=== PATIENT | male | born 1975 | race Caucasian/White ===

== ENCOUNTER 2017-04-25 22:00 | Inpatient (IN) | payer SELFPAY ==
--- NOTE | ~2017-04-25 | HP ---
Unit #: [id number] #: [id number] Patient: SAMY SHEN [id number] [place] [address] [id number] I MR#: [id number] NAME: SAMY SHEN ROOM: P212 Age: 41 Sex: M Admission Date: 04/26/2017 : 1975 Attending Physician: Sumeet Meade M.D. Admitting Physician: Sumeet Meade M.D. Primary Care Physician: Primary Care Physician No HISTORY AND PHYSICAL HISTORY OF PRESENT ILLNESS Samy is a 41 year old admitted to [address] [place] [address] because of his drug use. He shoots heroin and abuses benzodiazepines. PAST MEDICAL HISTORY Long history of illicit substance abuse to include IV heroin. PAST SURGICAL HISTORY Nothing reported. ALLERGIES No known drug allergies. SOCIAL HISTORY He smokes 1 pack per day. Denies alcohol. Admits to a long history of illicit substance abuse to include abusing benzodiazepines and IV heroin. FAMILY HISTORY Medically noncontributory. REVIEW OF SYSTEMS CONSTITUTIONAL: No fever or chills. HEENT: Denies any sore throat, ear pain or runny nose. CARDIOVASCULAR: Denies chest pain, irregular heart rhythm or palpitations. CHEST: Denies shortness of breath or cough. No hemoptysis. GASTROINTESTINAL: Denies nausea, vomiting, diarrhea or chronic constipation. ENDOCRINE: Denies history of increased thirst or urination. No recent significant weight loss or gain. GENITOURINARY: Denies dysuria, frequency, or hematuria. SKIN: Denies any rashes. HEMATOLOGIC: Denies history of increased bleeding or bruising. MUSCULOSKELETAL: Denies any hot, swollen joints. No generalized muscle pain. NEUROLOGIC: Denies problems with vision or speech. No frequent, severe headaches. No numbness, tingling or weakness in any extremities. Denies loss of bladder or bowel control. CURRENT MEDICATIONS Detox protocol. PHYSICAL EXAMINATION GENERAL: Alert, well-nourished, in no apparent distress. Unit #: [id number] #: [id number] Patient: SAMY SHEN VITAL SIGNS: Blood pressure 118/76, heart rate 70, respirations 16, temperature 98.6. WEIGHT: 184. HEIGHT: 5 feet 8 inches. SKIN: Warm and dry without rash or lesion. HEENT: Normocephalic. TMs not viewed. Oral and nasal passages clear. Conjunctivae clear. PERRLA. EOMs intact. NECK: Supple without lymphadenopathy or thyromegaly. HEART: Regular rate and rhythm without murmur. LUNGS: Clear. ABDOMEN: Soft, nontender. : Not done. EXTREMITIES: No evidence of cyanosis, clubbing or edema. Moves all without focal deficit. NEUROLOGICAL: Grossly within normal limits. Cranial Nerves: II: Visual marino are intact. III, IV AND : Extraocular movements are intact. Pupils are equal, round and reactive to light. V: Facial sensation is grossly normal. VII: Facial movements and expression are normal. VIII: Auditory acuity grossly intact. IX, X: Uvula is midline. Phonation is normal. XI: Patient shrugs shoulders and turns head normally. XII: Tongue protrudes in the midline. Sensory and Motor Function: Sensory and motor sensation is grossly normal. Motor: moves all extremities well. Coordination: Gait is normal. Deep Tendon Reflexes: Intact. IMPRESSION Psychiatric admission. RECOMMENDATIONS PSYCHIATRIC: Per psychiatrist. MEDICAL: See no contraindications to participate in facility's activities. MEDICAL PROGNOSIS Good. MEDICAL CONDITION Stable. Dictated by... Isidra Meredith P.A.-C. for Dominic Rollins/jose TD: 04/26/2017 23:22 JOB #: [id number] Unit #: [id number] #: [id number] Patient: SAMY SHEN HISTORY AND PHYSICAL Page 1 of 1 X Isidra Meredith HISTORY AND PHYSICAL
--- NOTE | ~2017-04-25 | DS ---
Unit #: [id number] #: [id number] Patient: ALYCIA SHEN [id number] [place] [address] [id number] MR#: [id number] NAME: ALYCIA SHEN ROOM: [facility] Age: 41 Sex: M Admission Date: 04/26/2017 : 1975 Discharge Date: 04/28/2017 Attending Physician: Sumeet Meade M.D. Primary Care Physician: Primary Care Physician No DISCHARGE SUMMARY REASON FOR ADMISSION The patient is a 41-year-old white male admitted to the [address] [place] [address] with a history of opioid dependence. HOSPITAL COURSE The patient was admitted to the [address] [place] [address] and placed on routine detoxification protocol for opioids. He did complain of some restless leg and was given a couple of doses of Requip which did seem to help with the symptoms. By 04/28, the patient requested discharge with his detox essentially complete, discharge was ordered. DISCHARGE DIAGNOSIS Opioid use disorder. FOLLOWUP CARE Followup to take place through the auspices of community mental health and chemical dependence treatment resources. DISCHARGE MEDICATIONS The patient is discharged on no psychotropic or other medications. PROGNOSIS Considered fair. Dictated by... Sumeet Meade M.D. CB/jose TD: 04/28/2017 15:44 JOB #: [id number] Unit #: [id number] #: [id number] Patient: ALYCIA SHEN DISCHARGE SUMMARY Page 1 of 1 X Sumeet Meade MD X DISCHARGE SUMMARY
--- NOTE | ~2017-04-25 | PA ---
Unit #: [id number] #: [id number] Patient: ALYCIA SHEN [id number] [place] [address] [id number] MR#: [id number] NAME: ALYCIA SHEN ROOM: P212 Age: 41 Sex: M Admission Date: 04/26/2017 : 1975 Date of Assessment: 04/26/2017 Attending Physician: Sumeet Meade M.D. Admitting Physician: Sumeet Meade M.D. Primary Care Physician: Primary Care Physician No PSYCHIATRIC ASSESSMENT IDENTIFYING INFORMATION The patient is a 41-year-old white male, admitted to the [address] [place] [address] for opioid detox. INFORMANT(S) Patient, patient reliability is good. CHIEF COMPLAINT None given. HISTORY OF PRESENT ILLNESS The patient is a 41-year-old white male, last admitted to this facility in 2013 has history of opioid and cannabis abuse and is admitted with recurrent abuse of heroin. The patient's COWS score is (1)____, the patient reports that he has also used pain pills and has been addicted to pain pills and heroin for the past fifteen years. He was last treated at this facility in 2013 but maintained sobriety for only a brief period of time thereafter. The patient is currently facing homelessness but states that he had planned to live with a cousin in [place] following his discharge from the hospital. He is currently denying suicidal or homicidal ideation. PAST PSYCHIATRIC HISTORY As noted previously, the patient has been treated at this facility in the past. He was also treated at [facility]. He was last here in 2013. He has no other past medical history. MEDICATIONS None at this time. ALLERGIES None. FAMILY HISTORY Noncontributory. SOCIAL HISTORY As noted previously the patient is facing homelessness and he is presently unemployed. He has been x2. He completed his GED. MENTAL STATUS EXAM Unit #: [id number] #: [id number] Patient: ALYCIA SHEN At this time reveals the patient to be a well-developed, well-nourished white male, appearing his stated age. He is in no apparent physical distress at the time of the examination. He is awake, alert, and oriented in all spheres. His mood is mildly dysphoric. His affect is constricted. Speech is generally relevant and coherent. There are no gross deficits to memory or cognition noted. Intelligence is judged to be in the average range based on fund of knowledge. The patient is cooperative throughout the interview. He is currently denying suicidal or homicidal ideation or psychotic features. Judgment and insight appear to be intact. ASSETS Motivation for change. LIABILITIES Lack of resources, history of sociopathy. DIAGNOSTIC IMPRESSION [place] I: Opioid use disorder. TREATMENT PLAN The patient remains hospitalized for safety and stabilization and routine detoxification protocol for opiates has been initiated. I will ask the patient's group social worker to see him regarding potential postdischarge treatment options and have added p.r.n. Vistaril and melatonin as well as a NicoDerm patch. ESTIMATED LENGTH OF STAY IN THE HOSPITAL Five days. Dictated by... Sumeet Meade M.D. ELIZABETH/pieter TD: 04/26/2017 13:12 JOB #: [id number] PSYCHIATRIC ASSESSMENT Page 1 of 1 X Sumeet Meade MD X PSYCHIATRIC ASSESSMENT
--- NOTE | ~2017-04-25 | PN ---
Unit #: [id number] #: [id number] Patient: ALYCIA SHEN [id number] [facility] [address] [place] [address] [id number] MR#: [id number] NAME: ALYCIA SHEN ROOM: P212 Age: 41 Sex: M Admission Date: 04/26/2017 : 1975 Attending Physician: Sumeet Meade M.D. Admitting Physician: Sumeet Meade M.D. Primary Care Physician: Primary Care Physician Jacqueline PROCTOR PROGRESS NOTES DATE 04/27/2017 DISCUSSION The patient is continuing to complain of significant symptoms of opiate withdrawal particularly restless legs which do appear present during today's evaluation. He states that he has done well on Requip in the past and we will start this medication at a dose of 0.25 mg b.i.d. Dictated by... Sumeet Meade M.D. ELIZABETH/jose TD: 04/27/2017 16:04 JOB #: [id number] [facility] PROGRESS NOTES Page 1 of 1 X Sumeet Meade MD PROGRESS NOTE
[2017-04-27 09:42] LABS: BASOPHIL% 0.7 % (0-2.5); EOSINOPHIL# 0.2 X10e3 (0-0.7); HEMATOCRIT 43.5 % (38.0-50.0); HEMOGLOBIN 14.5 gm/dL (13.0-16.0); LYMPHOCYTE# 2.9 X10e3 (1.0-3.5); MEAN CELL VOLUME 91.4 FL (83-96); MEAN CORPUSCULAR HEMOGLOBIN 30.3 PG (28-34); MEAN CORPUSCULAR HGB CONC 33.2 g/dL (30-36); MEAN PLATELET VOLUME 8.4 FL (6.5-11.5); MONOCYTE# 0.4 X10e3 (0-1.0); MONOCYTE% 6.1 % (3.0-12.0); NEUTROPHIL# 2.6 X10e3 (1.5-7.1); NEUTROPHIL% 42.2 % (40-75); PLATELET COUNT 238 X10e3 (140-420); RED BLOOD COUNT 4.76 X10e (3.90-5.60); RED CELL DISTRIBUTION WIDTH 13.2 % (11.0-15.5); WHITE BLOOD COUNT 6.2 X10e3 (4.0-10.5)
[2017-04-27 10:05] LABS: DIFF IND NO
[2017-04-27 10:08] LABS: ALBUMIN SERUM 3.9 g/dL (3.5-5.0); BILIRUBIN,TOTAL 0.5 mg/dL (0.2-2.0); BUN/CREATININE RATIO 8.75; CALCIUM SERUM 9.3 mg/dL (8.4-10.2); CREATININE SERUM 0.8 mg/dL (0.6-1.4); GLOM FILT RATE Estimated 109.5 mL/min (>60); POTASSIUM 3.8 mmol/L (3.5-5.1); PROTEIN TOTAL SERUM 6.9 g/dL (6.0-8.3)
[2017-04-27 10:23] LABS: URINE APPEARANCE CLEAR; URINE BILIRUBIN NEG (NEG); URINE BLOOD NEG (NEG); URINE COLOR YELLOW; URINE GLUCOSE NEG (NEG); URINE KETONE NEG (NEG); URINE LEUKOCYTE ESTERASE NEG (NEG); URINE NITRATE NEG (NEG); URINE PROTEIN NEG (NEG); URINE SPECIFIC GRAVITY 1.004 (1.003-1.035); URINE UROBILINOGEN 0.2 MG/DL (NEG)
[2017-04-27 10:42] LABS: AMPHETAMINE NEG (NEG); BARBITURATES NEG (NEG); BENZODIAZEPINES NEG (NEG); COCAINE NEG (NEG); MARIJUANA NEG (NEG); OPIATES NEG (NEG); TRICYCLIC ANTIDEPRESSANTS NEG (NEG); U METHADONE NEG (NEG)
[2017-05-03 14:23] LABS: HA AB IGM (HEPPAN) Nonreactive (()); HB CORE AB IGM (HEPPAN) Nonreactive (Nonreactive); HB S AG (HEPPAN) Nonreactive (Nonreactive); HEP C AB (HEPPAN) Reactive (Nonreactive)
== END 2017-04-28 14:47 | disposition home or self-care (01) | DRG 897 ==
LOC: P2S 04-26 11:12
PROVIDERS: Specialist
PROC: HZ2ZZZZ Detoxification Services for Substance Abuse Treatment (ICD-10-PCS; principal; 2017-04-26)
DX: F11.20 Opioid dependence, uncomplicated (principal); F17.210 Nicotine dependence, cigarettes, uncomplicated; Z59.0 Homelessness
CPT/HCPCS: 80053; 80074; 80307; 81003; 85025; 87522; 87806